=== PATIENT | female | born 1955 | race African-American/Black ===

== ENCOUNTER 2016-06-25 16:16 | Emergency (ER) | payer OTHER ==
[~2016-06-25] VITALS: Ht 162.6 cm; Wt 68.0 kg
[~2016-06-25 16:16] MED LIST: CARI250T7; HYDR-4067; NAP5EC
[2016-06-25] MEDS ORDERED: SODIUM CHLORIDE 0.9% 1,000 ML IV ONE (17:01)
[2016-06-25] MEDS ORDERED: FAMOTIDINE 20MG/2ML VIAL IV STA (17:01)
[2016-06-25] MEDS ORDERED: KETOROLAC 30MG/ML VIAL IV STA (17:01)
[2016-06-25] MEDS ORDERED: ONDANSETRON HCL 4MG/2ML VIAL IV STA ×2 (17:01→20:27)
[2016-06-25 17:48] LABS: ALBUMIN 4.5 g/dL (3.4-5.0); ANION GAP 16; CALCIUM 9.5 mg/dL (8.5-10.1); CARBON DIOXIDE 25 mEq/L (21-32); CHLORIDE 100 mEq/L (98-107); INDEX HEMOLYSI 2 (1-3); INDEX ICTERIC 1 (1-4); INDEX LIPEMIC 1 (1-3); LIPASE 113 IU/L (73-393); UREA NITROGEN BLOOD 8 mg/dL (7-21)
[2016-06-25 17:52] LABS: ALANINE AMINOTRANSFERASE 25 IU/L (13-61); eGFR > 60 mL/min (>60)
[2016-06-25] MEDS ORDERED: MORPHINE SULFATE 4 MG/ML CPJ (NOT FOR IM USE) IV ONE (18:30)
[2016-06-25 19:22] LABS: BASOPHILS % 0.2 % (0.0-2.0); HEMATOCRIT. 39.4 % (36.0-48.0); HEMOGLOBIN. 13.2 g/dL (12.0-16.0); LYMPHOCYTES % 8.3 % (20.0-50.0); MEAN CORPUSCULAR HEMOGLOBIN 30.8 pg (28.0-32.0); MEAN CORPUSCULAR HGB CONC 33.4 g/dL (31.0-37.0); MEAN CORPUSCULAR VOLUME 92.1 fL (81.0-99.0); MEAN PLATELET VOLUME 7.2 fl (7.4-10.4); MONOCYTES % 3.2 % (2.0-8.0); NEUTROPHILS % 88.3 % (40.0-76.0); PLATELET 356 x1000/uL (130-400); RED BLOOD CELL COUNT 4.27 mill/uL (4.2-5.4); RED CELL DISTRIBUTION WIDTH 12.6 % (11.6-14.6); WHITE BLOOD COUNT 10.5 x1000/uL (4.5-11.0)
[2016-06-25 20:05] LABS: CLARITY URINE CLEAR (CLEAR); COLOR URINE YELLOW (YELLOW); GLUCOSE URINE NEGATIVE (NEGATIVE); KETONES URINE TRACE (NEGATIVE); LEUKOCYTE ESTERASE URINE NEGATIVE (NEGATIVE); NITRITE URINE NEGATIVE (NEGATIVE); OCCULT BLOOD URINE NEGATIVE (NEGATIVE); PH URINE 8.5 (4.5-8.0); PROTEIN URINE TRACE (NEGATIVE); SPECIFIC GRAVITY URINE 1.015 (1.005-1.030); UROBILINOGEN URINE 0.2 E.U./dL (0.2-1.0)
[2016-06-25 20:26] LABS: *AMPHETAMINES SCREEN URINE NEGATIVE (NEGATIVE); *BARBITURATES SCREEN URINE NEGATIVE (NEGATIVE); *BENZODIAZEPINES SCREEN URINE PRESUMTIVE POSITIVE (NEGATIVE); *COCAINE SCREEN URINE NEGATIVE (NEGATIVE); CANNABINOID URINE SCREEN PRESUMTIVE POSITIVE (NEGATIVE); ECSTASY MDMA SCREEN URINE NEGATIVE (NEGATIVE); METHADONE URINE SCREEN NEGATIVE (NEGATIVE); OPIATES URINE SCREEN PRESUMTIVE POSITIVE (NEGATIVE); PHENCYCLIDINE URINE SCREEN NEGATIVE (NEGATIVE)
[2016-06-25] MEDS ORDERED: MORPHINE SULFATE 4 MG/ML CPJ (NOT FOR IM USE) IV STA (20:27)
[2016-06-25 20:28] LABS: BACTERIA URINE TRACE; RBC URINE NONE SEEN /hpf (0-2); SQUAMOUS EPITHELIAL CELL URINE RARE /lpf (RARE/1+); WBC URINE 0-2 /hpf (0-2)
[2016-06-25 23:02] VITALS: BP 140/81
[2016-06-25] MEDS ORDERED: MAGNESIUM/ALUMINUM HYDROXIDE/SIMETHICONE 30ML UDC PO STA (23:16)
[2016-06-25] MEDS ORDERED: VISCOUS LIDOCAINE 2% 15 ML UDC PO STA (23:16)
[2016-06-25] MEDS ORDERED: DICYCLOMINE 10 MG/5 ML ORAL SYR PO STA (23:16)
== END 2016-06-25 23:45 | disposition home or self-care (01) ==
LOC: ER 16:16
DX: R10.10 Upper abdominal pain, unspecified (principal); I10 Essential (primary) hypertension; Z79.899 Other long term (current) drug therapy
CPT/HCPCS: 36415; 74176; 80053; 80305; 81001; 83690; 85025; 96361; 96374; 96375; 96376; 99285; J1885; J2270; J2405; J3490; Z7610; J7030

== ENCOUNTER 2016-12-23 21:15 | Inpatient (IN) | payer OTHER ==
[~2016-12-23] VITALS: Ht 162.6 cm; Wt 68.0 kg
[2016-12-23 23:48] LABS: CLARITY URINE CLEAR (CLEAR); COLOR URINE DARK YELLOW (YELLOW); GLUCOSE URINE NEGATIVE (NEGATIVE); KETONES URINE 4+ (NEGATIVE); LEUKOCYTE ESTERASE URINE NEGATIVE (NEGATIVE); NITRITE URINE NEGATIVE (NEGATIVE); OCCULT BLOOD URINE 2+ (NEGATIVE); PH URINE 6.5 (4.5-8.0); PROTEIN URINE 4+ (NEGATIVE); SPECIFIC GRAVITY URINE 1.029 (1.005-1.030); UROBILINOGEN URINE 0.2 E.U./dL (0.2-1.0)
[2016-12-24 00:32] LABS: *AMPHETAMINES SCREEN URINE NEGATIVE (NEGATIVE); *BARBITURATES SCREEN URINE NEGATIVE (NEGATIVE); *BENZODIAZEPINES SCREEN URINE PRESUMTIVE POSITIVE (NEGATIVE); *COCAINE SCREEN URINE NEGATIVE (NEGATIVE); CANNABINOID URINE SCREEN PRESUMTIVE POSITIVE (NEGATIVE); METHADONE URINE SCREEN NEGATIVE (NEGATIVE); OPIATES URINE SCREEN PRESUMTIVE POSITIVE (NEGATIVE); PHENCYCLIDINE URINE SCREEN NEGATIVE (NEGATIVE)
[2016-12-24] MEDS ORDERED: ONDANSETRON HCL 4MG/2ML VIAL IV ONE (00:45)
[2016-12-24] MEDS ORDERED: MORPHINE SULFATE 4 MG/ML CPJ (NOT FOR IM USE) IV ONE ×2 (00:45→03:30)
[2016-12-24] MEDS ORDERED: SODIUM CHLORIDE 0.9% 500 ML IV ONE (00:45)
[2016-12-24 00:51] LABS: HEMATOCRIT. 41.8 % (36.0-48.0); HEMOGLOBIN. 14.5 g/dL (12.0-16.0); MEAN CORPUSCULAR HEMOGLOBIN 31.6 pg (28.0-32.0); MEAN CORPUSCULAR VOLUME 90.8 fL (81.0-99.0); MEAN PLATELET VOLUME 7.3 fl (7.4-10.4); PLATELET 377 x1000/uL (130-400); RED CELL DISTRIBUTION WIDTH 12.2 % (11.6-14.6)
[2016-12-24 00:57] LABS: CHLORIDE 91 mEq/L (98-107); PROTHROMBIN TIME 10.1 sec (9.4-11.6)
[2016-12-24 01:08] LABS: CARBON DIOXIDE 25 mEq/L (21-32)
[2016-12-24] MEDS ORDERED: HYDROCHLOROTHIAZIDE 25MG TABLET PO ONE (01:30)
[2016-12-24] MEDS: FAMOTIDINE 20MG/2ML VIAL IV SCH ×2 (01:40→09:00)
[2016-12-24] MEDS ORDERED: SODIUM CHLORIDE 0.9% 1,000 ML IV ONE (04:00)
[2016-12-24 04:05] LABS: PLATELET ESTIMATE NORMAL
[2016-12-24 08:20] VITALS: BP 135/72
[2016-12-24 09:00] VITALS: BP 135/72
[2016-12-24] MEDS ORDERED: ALPR1TAB2 PO (09:09)
[2016-12-24] MEDS ORDERED: DOCUSATE SODIUM 100MG CAPSULE PO PRN (09:45)
[2016-12-24] MEDS ORDERED: MAGNESIUM/ALUMINUM HYDROXIDE/SIMETHICONE 30ML UDC PO PRN (09:45)
[2016-12-24] MEDS ORDERED: CLONIDINE 0.1MG TABLET PO PRN (09:45)
[2016-12-24] MEDS ORDERED: ONDANSETRON HCL 4MG/2ML VIAL IV PRN (09:45)
[2016-12-24] MEDS: AMLODIPINE 10MG TABLET PO SCH (10:44)
[2016-12-24] MEDS: ASPIRIN 81MG EC TABLET PO SCH (10:44)
[2016-12-24] MEDS: SODIUM CHLORIDE 0.9% 1,000 ML IV SCH ×2 (11:02→21:56)
[2016-12-24] MEDS: LEVOFLOXACIN 500MG PREMIX 100 ML IV SCH (11:14)
[2016-12-24 12:00] VITALS: BP 123/61
[2016-12-24] MEDS: HYDROCODONE/ACETAMINOPHEN 5/325MG TABLET PO PRN ×2 (15:09→21:56)
[2016-12-24 16:00] VITALS: BP 107/62
[2016-12-24 20:25] VITALS: BP 119/52
[2016-12-25] VITALS: BP 119/58
[2016-12-25 04:00] VITALS: BP 124/59
[2016-12-25 08:00] VITALS: BP 117/57
[2016-12-25] MEDS: AMLODIPINE 10MG TABLET PO SCH (08:50)
[2016-12-25] MEDS: ASPIRIN 81MG EC TABLET PO SCH (08:50)
[2016-12-25 09:44] LABS: CARBON DIOXIDE 28 mEq/L (21-32); CHLORIDE 103 mEq/L (98-107)
[2016-12-25] MEDS: LEVOFLOXACIN 500MG PREMIX 100 ML IV SCH (11:46)
[2016-12-25 12:00] VITALS: BP 115/69
[2016-12-25] MEDS: SODIUM CHLORIDE 0.9% 1,000 ML IV SCH (12:03)
[2016-12-25 12:13] VITALS: BP 115/69
[2016-12-25 13:33] LABS: BASOPHILS % 0.4 % (0.0-2.0); EOSINOPHILS % 0.2 % (0.0-5.0); HEMATOCRIT. 36.9 % (36.0-48.0); HEMOGLOBIN. 12.7 g/dL (12.0-16.0); MEAN CORPUSCULAR VOLUME 93.2 fL (81.0-99.0); MEAN PLATELET VOLUME 7.4 fl (7.4-10.4); MONOCYTES % 9.6 % (2.0-8.0); NEUTROPHILS % 60.8 % (40.0-76.0); PLATELET 331 x1000/uL (130-400); RED BLOOD CELL COUNT 3.96 mill/uL (4.2-5.4); RED CELL DISTRIBUTION WIDTH 12.1 % (11.6-14.6)
== END 2016-12-25 12:45 | disposition home or self-care (01) | DRG 463 ==
LOC: ER 22:34 → 7WST 12-24 01:35 → EDBEDREQTM 12-24 01:47 → EDBEDREQ 12-24 01:47 → ENRESERV 12-24 07:03
PROVIDERS: ADMIT Hospitalist; ATTEND Hospitalist
DX: N12 Tubulo-interstitial nephritis, not specified as acute or chronic (principal); E87.1 Hypo-osmolality and hyponatremia; E87.8 Other disorders of electrolyte and fluid balance, not elsewhere classified; I10 Essential (primary) hypertension; I16.0 Hypertensive urgency; Z79.899 Other long term (current) drug therapy; Z98.891 History of uterine scar from previous surgery
CPT/HCPCS: 36415; 74176; 80053; 80305; 81001; 83036; 83690; 85025; 85610; 85651; 93005; 93970; 96361; 96374; 96375; 96376; 99285; C1893; J1956; J2270; J2405; J3490; J7030; J7040

== ENCOUNTER 2017-02-28 16:46 | Emergency (ER) | payer OTHER ==
[~2017-02-28] VITALS: Ht 165.1 cm; Wt 60.0 kg
[~2017-02-28 16:46] MED LIST changes: +ALPR1TAB2 PO
[2017-02-28 16:49] VITALS: BP 181/100
[2017-02-28] MEDS ORDERED: HYDR12.529 PO (16:51)
== END 2017-03-01 00:05 | disposition left against medical advice (07) ==
LOC: ER 17:13
DX: R11.2 Nausea with vomiting, unspecified (principal); Z53.21 Procedure and treatment not carried out due to patient leaving prior to being seen by health care provider

== ENCOUNTER 2018-06-09 15:46 | Inpatient (IN) | payer OTHER ==
[~2018-06-09] VITALS: Ht 162.6 cm; Wt 62.7 kg
[~2018-06-09 15:46] MED LIST changes: +HYDR12.529 PO
[2018-06-09] MEDS ORDERED: PIPERACILLIN/TAZ 3.375G PREMIX 50 ML IV ONE (16:30)
[2018-06-09] MEDS ORDERED: ONDANSETRON HCL 4MG/2ML INJ IV STA (16:30)
[2018-06-09] MEDS ORDERED: KETOROLAC 30MG/ML VIAL IV STA (16:30)
[2018-06-09] MEDS ORDERED: SODIUM CHLORIDE 0.9% 1000ML BAG (SEPSIS BOLUS) IV ONE (16:30)
[2018-06-09 17:07] LABS: BASOPHILS % 0.5 % (0.0-2.0); EOSINOPHILS % 0.1 % (0.0-5.0); HEMATOCRIT. 45.6 % (36.0-48.0); HEMOGLOBIN. 15.3 g/dL (12.0-16.0); MEAN CORPUSCULAR HEMOGLOBIN 32.1 pg (28.0-32.0); MEAN CORPUSCULAR VOLUME 95.6 fL (81.0-99.0); MEAN PLATELET VOLUME 7.2 fl (7.4-10.4); MONOCYTES % 5.6 % (2.0-8.0); NEUTROPHILS % 80.8 % (40.0-76.0); PLATELET 463 x1000/uL (130-400); RED BLOOD CELL COUNT 4.77 mill/uL (4.2-5.4); RED CELL DISTRIBUTION WIDTH 12.6 % (11.6-14.6)
[2018-06-09 17:11] LABS: CHLORIDE 99 mEq/L (98-107)
[2018-06-09 17:14] LABS: PROTHROMBIN TIME 9.6 sec (9.1-11.1)
[2018-06-09] MEDS ORDERED: METOCLOPRAMIDE HCL 10MG/2ML VIAL IV ONE (18:45)
[2018-06-09 19:02] LABS: CLARITY URINE CLEAR (CLEAR); COLOR URINE YELLOW (YELLOW); KETONES URINE 1+ (NEGATIVE); LEUKOCYTE ESTERASE URINE NEGATIVE (NEGATIVE); NITRITE URINE NEGATIVE (NEGATIVE); OCCULT BLOOD URINE NEGATIVE (NEGATIVE); PH URINE 8.5 (4.5-8.0); PROTEIN URINE 2+ (NEGATIVE); SPECIFIC GRAVITY URINE 1.016 (1.005-1.030); UROBILINOGEN URINE 0.2 E.U./dL (0.2-1.0)
[2018-06-09] MEDS ORDERED: MORPHINE SULFATE 4 MG/ML CPJ (NOT FOR IM USE) IV ONE (19:15)
[2018-06-09] MEDS ORDERED: DILTIAZEM HCL 125 MG in DEXT 5% WATER 100 ML IV ONE (20:15)
[2018-06-09] MEDS ORDERED: ASPIRIN 300MG SUPP PR ONE (20:15)
[2018-06-09] MEDS ORDERED: DILTIAZEM HCL 125 MG in DEXT 5% WATER 100 ML IV SCH (20:30)
[2018-06-09] MEDS ORDERED: HEPARIN 5000 UNITS/ML VIAL IV ONE (20:30)
[2018-06-09] MEDS ORDERED: SODIUM CHLORIDE 0.9% 1,000 ML IV ONE (20:30)
[2018-06-09] MEDS ORDERED: HEPARIN 25,000 UNITS PREMIX 500 ML IV ONE ×2 (20:30→23:45)
[2018-06-09] MEDS ORDERED: DIPHENHYDRAMINE 50MG/ML VIAL IV PRN (22:00)
[2018-06-09] MEDS ORDERED: CLONIDINE 0.1MG TABLET PO PRN (22:00)
[2018-06-09] MEDS: METRONIDAZOLE 500 MG PREMIX 100 ML IV SCH (22:00)
[2018-06-09] MEDS ORDERED: IPRATROPIUM/ALBUTEROL 0.5-3(2.5)MG/3ML NEB INH PRN (22:00)
[2018-06-09] MEDS ORDERED: ACETAMINOPHEN 650MG SUPP PR PRN (22:00)
[2018-06-09] MEDS ORDERED: MAGNESIUM/ALUMINUM HYDROXIDE/SIMETHICONE 30ML UDC PO PRN (22:00)
[2018-06-09] MEDS ORDERED: ACETAMINOPHEN 650MG/20.3ML UDC GT PRN (22:00)
[2018-06-09] MEDS ORDERED: ENOXAPARIN 40MG/0.4ML SYR SUBCUT SCH (22:00)
[2018-06-09] MEDS ORDERED: HYDROCODONE/ACETAMINOPHEN 5/325MG TABLET PO PRN (22:00)
[2018-06-09] MEDS ORDERED: ACETAMINOPHEN 325MG TABLET PO PRN (22:00)
[2018-06-09] MEDS ORDERED: NA PHOS,M-B/NA PHOS,DI-BA ENEMA 118ML PR PRN (22:00)
[2018-06-09] MEDS ORDERED: LEVOFLOXACIN 500MG PREMIX 100 ML IV NR (23:45)
[2018-06-09] MEDS ORDERED: METRONIDAZOLE 500 MG PREMIX 100 ML IV NR (23:45)
[2018-06-10] MEDS ORDERED: HYDRALAZINE 20MG/ML VIAL IV PRN
[2018-06-10] MEDS ORDERED: NITROGLYCERIN 0.2MG/HR PATCH TOP NR (00:45)
[2018-06-10] MEDS: HYDROCODONE/ACETAMINOPHEN 10/325MG TABLET PO PRN ×3 (01:20→17:42)
[2018-06-10] MEDS ORDERED: HEPARIN 25,000 UNITS PREMIX 500 ML IV NR (03:15)
[2018-06-10] MEDS ORDERED: AMLODIPINE 10MG TABLET PO NR (05:15)
[2018-06-10] MEDS: SODIUM CHLORIDE 0.9% INJ 3ML FLUSH IVF SCH ×4 (06:00→21:14)
[2018-06-10] MEDS: METRONIDAZOLE 500 MG PREMIX 100 ML IV SCH ×2 (06:00→21:04)
[2018-06-10] MEDS: ONDANSETRON HCL 4MG/2ML INJ IV PRN (06:21)
[2018-06-10 06:38] LABS: BASOPHILS % 0.5 % (0.0-2.0); HEMATOCRIT. 42.1 % (36.0-48.0); HEMOGLOBIN. 14.4 g/dL (12.0-16.0); LYMPHOCYTES % 15.3 % (20.0-50.0); MEAN CORPUSCULAR VOLUME 93.5 fL (81.0-99.0); MEAN PLATELET VOLUME 7.1 fl (7.4-10.4); MONOCYTES % 13.7 % (2.0-8.0); NEUTROPHILS % 70.5 % (40.0-76.0); PLATELET 467 x1000/uL (130-400)
[2018-06-10 06:42] LABS: CHLORIDE 99 mEq/L (98-107)
[2018-06-10 06:55] LABS: LDL CHOLESTEROL 89 mg/dL (5-100)
[2018-06-10 06:56] LABS: CREATINE KINASE 356 IU/L (26-192)
[2018-06-10 06:57] LABS: HDL CHOLESTEROL 78 mg/dL (40-59)
[2018-06-10] MEDS ORDERED: METRONIDAZOLE 500 MG PREMIX 100 ML IV SCH ×2 (08:30→14:15)
[2018-06-10] MEDS: ASPIRIN 81MG TABLET PO SCH (09:00)
[2018-06-10] MEDS ORDERED: AMLODIPINE 5MG TABLET PO SCH (09:00)
[2018-06-10] MEDS: SODIUM CHLORIDE 0.45% 1,000 ML IV SCH ×5 (10:32→22:53)
[2018-06-10] MEDS ORDERED: ONDANSETRON HCL 4MG/2ML INJ IV ONE (11:00)
[2018-06-10] MEDS: METOCLOPRAMIDE HCL 10MG/2ML VIAL IV SCH ×3 (12:55→23:46)
[2018-06-10 14:00] VITALS: BP 130/79
[2018-06-10] MEDS ORDERED: LEVOFLOXACIN 500MG PREMIX 100 ML IV SCH (14:15)
[2018-06-10 14:24] LABS: PARTIAL THROMBOPLASTIN TIME 26.3 sec (23.4-31.0); PROTHROMBIN TIME 10.1 sec (9.1-11.1)
[2018-06-10 16:00] VITALS: BP 130/63
[2018-06-10 18:00] VITALS: BP 142/83
[2018-06-10] MEDS ORDERED: POTASSIUM CHLORIDE 20MEQ TABLET SR PO SCH (19:15)
[2018-06-10 20:00] VITALS: BP 122/62
[2018-06-10] MEDS ORDERED: VANCOMYCIN 1 G PREMIX 200 ML IV SCH (21:00)
[2018-06-10 22:00] VITALS: BP 118/69
[2018-06-11] VITALS (10 sets, daily range): BP systolic 99–128; BP diastolic 48–77
[2018-06-11 01:49] LABS: *AMPHETAMINES SCREEN URINE NEGATIVE (NEGATIVE); *BARBITURATES SCREEN URINE NEGATIVE (NEGATIVE); *BENZODIAZEPINES SCREEN URINE NEGATIVE (NEGATIVE); *COCAINE SCREEN URINE NEGATIVE (NEGATIVE); METHADONE URINE SCREEN NEGATIVE (NEGATIVE); OPIATES URINE SCREEN PRESUMTIVE POSITIVE (NEGATIVE)
[2018-06-11 01:51] LABS: CANNABINOID URINE SCREEN PRESUMTIVE POSITIVE (NEGATIVE); PHENCYCLIDINE URINE SCREEN NEGATIVE (NEGATIVE)
[2018-06-11] MEDS: METRONIDAZOLE 500 MG PREMIX 100 ML IV SCH ×3 (03:42→21:06)
[2018-06-11] MEDS: SODIUM CHLORIDE 0.45% 1,000 ML IV SCH ×2 (03:43→23:50)
[2018-06-11] MEDS: ONDANSETRON HCL 4MG/2ML INJ IV PRN (04:30)
[2018-06-11] MEDS: HYDROCODONE/ACETAMINOPHEN 10/325MG TABLET PO PRN ×2 (04:37→21:05)
[2018-06-11] MEDS ORDERED: LEVOFLOXACIN 500MG PREMIX 100 ML IV SCH (05:00)
[2018-06-11] MEDS: METOCLOPRAMIDE HCL 10MG/2ML VIAL IV SCH ×4 (05:50→23:50)
[2018-06-11] MEDS: SODIUM CHLORIDE 0.9% INJ 3ML FLUSH IVF SCH ×3 (05:51→21:06)
[2018-06-11] MEDS ORDERED: NITROGLYCERIN 0.2MG/HR PATCH TOP SCH (06:00)
[2018-06-11 07:39] LABS: HEMATOCRIT. 37.1 % (36.0-48.0); HEMOGLOBIN. 12.8 g/dL (12.0-16.0); MEAN CORPUSCULAR HEMOGLOBIN 32.6 pg (28.0-32.0); MEAN CORPUSCULAR VOLUME 94.9 fL (81.0-99.0); MEAN PLATELET VOLUME 6.7 fl (7.4-10.4); PLATELET 410 x1000/uL (130-400); RED BLOOD CELL COUNT 3.91 mill/uL (4.2-5.4); RED CELL DISTRIBUTION WIDTH 12.4 % (11.6-14.6)
[2018-06-11 07:51] LABS: CHLORIDE 102 mEq/L (98-107)
[2018-06-11] MEDS ORDERED: ENOXAPARIN 40MG/0.4ML SYR SUBCUT SCH (09:00)
[2018-06-11] MEDS: AMLODIPINE 10MG TABLET PO SCH (09:20)
[2018-06-11] MEDS: ASPIRIN 81MG TABLET PO SCH (09:20)
[2018-06-11] MEDS: VANCOMYCIN 750 MG PREMIX 150 ML IV SCH ×2 (12:49→23:51)
[2018-06-11 14:15] LABS: PLATELET ESTIMATE SLIGHTLY INCREASED
[2018-06-12] VITALS (8 sets, daily range): BP systolic 99–140; BP diastolic 48–80
[2018-06-12] MEDS: METRONIDAZOLE 500 MG PREMIX 100 ML IV SCH ×3 (03:42→19:38)
[2018-06-12] MEDS ORDERED: LEVOFLOXACIN 500MG PREMIX 100 ML IV SCH (05:00)
[2018-06-12] MEDS: NITROGLYCERIN 0.2MG/HR PATCH TOP SCH (05:40)
[2018-06-12] MEDS: LEVOFLOXACIN 500MG PREMIX 100 ML IV SCH (05:41)
[2018-06-12] MEDS: SODIUM CHLORIDE 0.9% INJ 3ML FLUSH IVF SCH ×2 (05:41→22:00)
[2018-06-12] MEDS: METOCLOPRAMIDE HCL 10MG/2ML VIAL IV SCH ×4 (05:41→23:43)
[2018-06-12 06:30] LABS: BASOPHILS % 0.5 % (0.0-2.0); EOSINOPHILS % 1.1 % (0.0-5.0); HEMATOCRIT. 33.7 % (36.0-48.0); HEMOGLOBIN. 11.7 g/dL (12.0-16.0); LYMPHOCYTES % 34.9 % (20.0-50.0); MEAN CORPUSCULAR HEMOGLOBIN 32.7 pg (28.0-32.0); MEAN CORPUSCULAR VOLUME 94.5 fL (81.0-99.0); MEAN PLATELET VOLUME 6.6 fl (7.4-10.4); MONOCYTES % 14.1 % (2.0-8.0); NEUTROPHILS % 49.4 % (40.0-76.0); PLATELET 379 x1000/uL (130-400); RED BLOOD CELL COUNT 3.56 mill/uL (4.2-5.4)
[2018-06-12] MEDS: HYDROCODONE/ACETAMINOPHEN 10/325MG TABLET PO PRN ×2 (06:34→12:51)
[2018-06-12] MEDS: ONDANSETRON HCL 4MG/2ML INJ IV PRN ×2 (06:34→23:48)
[2018-06-12 07:45] LABS: CHLORIDE 104 mEq/L (98-107)
[2018-06-12] MEDS ORDERED: IOHEXOL-300 100 ML BOTTLE ONE (08:26)
[2018-06-12] MEDS ORDERED: FENTANYL CITRATE/PF 50MCG/ML 2ML VIAL ONE (08:45)
[2018-06-12] MEDS ORDERED: MIDAZOLAM HCL 2 MG/2 ML VIAL ONE (08:45)
[2018-06-12] MEDS: AMLODIPINE 10MG TABLET PO SCH (09:00)
[2018-06-12] MEDS: ASPIRIN 81MG TABLET PO SCH (09:00)
[2018-06-12] MEDS ORDERED: ATROPINE SULFATE 1MG/10ML SYR IV PRN (09:15)
[2018-06-12] MEDS ORDERED: ACETAMINOPHEN 325MG TABLET PO PRN (09:15)
[2018-06-12] MEDS: VANCOMYCIN 750 MG PREMIX 150 ML IV SCH ×2 (11:00→17:12)
[2018-06-12] MEDS ORDERED: MAGNESIUM 2 G PREMIX 50 ML IV NR (11:30)
[2018-06-12] MEDS ORDERED: MAGNESIUM 1 G PREMIX 100 ML IV NR (23:30)
[2018-06-12] MEDS: SODIUM CHLORIDE 0.45% 1,000 ML IV SCH (23:50)
[2018-06-13] VITALS: BP 118/77
[2018-06-13 02:00] VITALS: BP 144/71
[2018-06-13] MEDS: METRONIDAZOLE 500 MG PREMIX 100 ML IV SCH ×2 (03:52→11:32)
[2018-06-13 04:00] VITALS: BP 105/63
[2018-06-13] MEDS: VANCOMYCIN 750 MG PREMIX 150 ML IV SCH (04:24)
[2018-06-13] MEDS: METOCLOPRAMIDE HCL 10MG/2ML VIAL IV SCH ×2 (05:47→11:32)
[2018-06-13] MEDS: LEVOFLOXACIN 500MG PREMIX 100 ML IV SCH (05:47)
[2018-06-13] MEDS: NITROGLYCERIN 0.2MG/HR PATCH TOP SCH (05:48)
[2018-06-13] MEDS: SODIUM CHLORIDE 0.9% INJ 3ML FLUSH IVF SCH (05:48)
[2018-06-13 07:04] LABS: BASOPHILS % 0.7 % (0.0-2.0); EOSINOPHILS % 1.3 % (0.0-5.0); HEMOGLOBIN. 10.6 g/dL (12.0-16.0); LYMPHOCYTES % 36.5 % (20.0-50.0); MEAN CORPUSCULAR HEMOGLOBIN 31.9 pg (28.0-32.0); MEAN CORPUSCULAR VOLUME 96.1 fL (81.0-99.0); MEAN PLATELET VOLUME 6.6 fl (7.4-10.4); MONOCYTES % 12.9 % (2.0-8.0); NEUTROPHILS % 48.6 % (40.0-76.0); PLATELET 336 x1000/uL (130-400); RED BLOOD CELL COUNT 3.33 mill/uL (4.2-5.4); RED CELL DISTRIBUTION WIDTH 12.4 % (11.6-14.6)
[2018-06-13 07:39] LABS: CHLORIDE 106 mEq/L (98-107)
[2018-06-13 08:13] VITALS: BP 136/89
[2018-06-13] MEDS: ASPIRIN 81MG TABLET PO SCH (08:13)
[2018-06-13] MEDS: AMLODIPINE 10MG TABLET PO SCH (08:13)
[2018-06-13] MEDS: HYDROCODONE/ACETAMINOPHEN 10/325MG TABLET PO PRN (08:19)
[2018-06-13 11:57] VITALS: BP 129/77
[2018-06-13] MEDS ORDERED: ASPI-1160 PO (12:27)
[2018-06-13] MEDS ORDERED: AMLO10TA80 PO (12:27)
[2018-06-13] MEDS ORDERED: ATOR10TA MT (12:30)
[2018-06-13] MEDS ORDERED: LEVO500T2 MT (12:32)
[2018-06-13 12:40] VITALS: BP 129/77
[2018-06-13] MEDS ORDERED: METRONIDAZOLE 500MG TABLET PO SCH (20:00)
[2018-06-13] MEDS ORDERED: ATORVASTATIN CALCIUM 10MG TABLET PO SCH (21:00)
[2018-06-14] MEDS ORDERED: LEVOFLOXACIN 250MG TABLET PO SCH (09:00)
== END 2018-06-13 14:32 | disposition home or self-care (01) | DRG 720 ==
LOC: ER 17:11 → EDBEDREQTM 19:03 → EDBEDREQ 19:03 → EDBEDREQSVC 19:03 → 5EST 20:27 → EDBEDREQ 20:29 → EDBEDREQSVC 20:29 → EDBEDREQTM 20:29 → ENRESERV 06-10 14:41 → 5EST 06-11 11:30
PROVIDERS: ADMIT Family Medicine; ATTEND Family Medicine
PROC: 4A023N7 Measurement of Cardiac Sampling and Pressure, Left Heart, Percutaneous Approach (ICD-10-PCS; principal; 2018-06-12)
PROC: B2111ZZ Fluoroscopy of Multiple Coronary Arteries using Low Osmolar Contrast (ICD-10-PCS; 2018-06-12)
PROC: B2151ZZ Fluoroscopy of Left Heart using Low Osmolar Contrast (ICD-10-PCS; 2018-06-12)
PROC: B41F1ZZ Fluoroscopy of Right Lower Extremity Arteries using Low Osmolar Contrast (ICD-10-PCS; 2018-06-12)
DX: A41.9 Sepsis, unspecified organism (principal); I21.4 Non-ST elevation (NSTEMI) myocardial infarction; E87.2 Acidosis; E87.1 Hypo-osmolality and hyponatremia; E87.6 Hypokalemia; I10 Essential (primary) hypertension; F12.90 Cannabis use, unspecified, uncomplicated; J44.9 Chronic obstructive pulmonary disease, unspecified; K04.7 Periapical abscess without sinus; M26.622 Arthralgia of left temporomandibular joint; D25.9 Leiomyoma of uterus, unspecified; K05.6 Periodontal disease, unspecified; E78.5 Hyperlipidemia, unspecified; L03.211 Cellulitis of face; K52.9 Noninfective gastroenteritis and colitis, unspecified; Z79.899 Other long term (current) drug therapy
CPT/HCPCS: 36415; 70486; 71045; 74176; 80048; 80061; 80202; 80305; 82550; 82553; 83036; 83605; 83735; 84145; 84484; 87804; 93005; 93306; 93458; 96374; 99291; C1760; C1769; C1887; C1893; J1644; J1650; J1885; J1956; J2250; J2270; J2405; J2543; J2765; J3010; J3370; J3475; J3490; J7030; J7060; Q9967

== ENCOUNTER 2018-10-02 15:43 | Emergency (ER) | payer OTHER ==
[~2018-10-02] VITALS: Ht 162.6 cm; Wt 65.0 kg
[~2018-10-02 15:43] MED LIST changes: -ALPR1TAB2 PO; +AMLO10TA80 PO; +ASPI-1160 PO; +ATOR10TA MT; -CARI250T7; -HYDR-4067; -HYDR12.529 PO; +LEVO500T2 MT; -NAP5EC
[2018-10-02 16:33] VITALS: BP 145/85
[2018-10-02] MEDS ORDERED: ACETAMINOPHEN 500MG TABLET PO ONE (19:00)
== END 2018-10-02 19:09 | disposition home or self-care (01) ==
LOC: ER 17:49
DX: L03.211 Cellulitis of face (principal); I10 Essential (primary) hypertension
CPT/HCPCS: 99283

== ENCOUNTER 2019-03-01 15:43 | Emergency (ER) | payer OTHER ==
[~2019-03-01] VITALS: Ht 162.6 cm; Wt 68.0 kg
[2019-03-01 17:23] LABS: BASOPHILS % 0.5 % (0.0-2.0); EOSINOPHILS % 0.9 % (0.0-5.0); HEMATOCRIT. 41.7 % (36.0-48.0); HEMOGLOBIN. 13.9 g/dL (12.0-16.0); LYMPHOCYTES % 24.7 % (20.0-50.0); MEAN CORPUSCULAR HEMOGLOBIN 31.8 pg (28.0-32.0); MEAN PLATELET VOLUME 7.4 fl (7.4-10.4); MONOCYTES % 11.7 % (2.0-8.0); NEUTROPHILS % 62.2 % (40.0-76.0); PLATELET 327 x1000/uL (130-400); RED BLOOD CELL COUNT 4.35 mill/uL (4.2-5.4); RED CELL DISTRIBUTION WIDTH 12.2 % (11.6-14.6)
[2019-03-01 17:26] LABS: CHLORIDE 99 mEq/L (98-107)
[2019-03-01] MEDS ORDERED: ALPRAZOLAM 0.25 MG TABLET PO ONE (21:00)
[2019-03-01] MEDS ORDERED: ONDANSETRON 4MG ODT PO ONE (21:00)
[2019-03-01 21:23] VITALS: BP 148/79
== END 2019-03-01 21:28 | disposition home or self-care (01) ==
LOC: ER 15:43
DX: F41.0 Panic disorder [episodic paroxysmal anxiety] (principal); M47.894 Other spondylosis, thoracic region; R42 Dizziness and giddiness; I10 Essential (primary) hypertension
CPT/HCPCS: 36415; 71046; 80053; 83880; 84484; 85025; 93005; 99284; Q0162

== ENCOUNTER 2019-12-13 12:50 | Inpatient (IN) | payer MEDICAID, OTHER ==
[~2019-12-13] VITALS: Ht 162.6 cm; Wt 67.1 kg
[2019-12-13 14:25] LABS: BASOPHILS % 1.8 % (0.0-2.0); EOSINOPHILS % 0.8 % (0.0-5.0); HEMATOCRIT. 44.6 % (36.0-48.0); HEMOGLOBIN. 14.7 g/dL (12.0-16.0); LYMPHOCYTES % 24.7 % (20.0-50.0); MEAN CORPUSCULAR HEMOGLOBIN 29.6 pg (28.0-32.0); MEAN CORPUSCULAR VOLUME 89.5 fL (81.0-99.0); MEAN PLATELET VOLUME 7.6 fl (7.4-10.4); MONOCYTES % 7.6 % (2.0-8.0); NEUTROPHILS % 65.1 % (40.0-76.0); PLATELET 296 x1000/uL (130-400); RED BLOOD CELL COUNT 4.98 mill/uL (4.2-5.4); RED CELL DISTRIBUTION WIDTH 13.7 % (11.6-14.6)
[2019-12-13 14:32] LABS: CHLORIDE 103 mEq/L (98-107)
[2019-12-13 17:23] LABS: CLARITY URINE CLEAR (CLEAR); COLOR URINE YELLOW (YELLOW); KETONES URINE NEGATIVE (NEGATIVE); LEUKOCYTE ESTERASE URINE TRACE (NEGATIVE); NITRITE URINE NEGATIVE (NEGATIVE); OCCULT BLOOD URINE NEGATIVE (NEGATIVE); PH URINE >=9.0 (4.5-8.0); PROTEIN URINE NEGATIVE (NEGATIVE); SPECIFIC GRAVITY URINE 1.012 (1.005-1.030)
[2019-12-13 17:44] LABS: *AMPHETAMINES SCREEN URINE NEGATIVE (NEGATIVE); *BARBITURATES SCREEN URINE NEGATIVE (NEGATIVE); *BENZODIAZEPINES SCREEN URINE NEGATIVE (NEGATIVE); *COCAINE SCREEN URINE NEGATIVE (NEGATIVE)
[2019-12-13 17:45] LABS: CANNABINOID URINE SCREEN PRESUMTIVE POSITIVE (NEGATIVE); OPIATES URINE SCREEN NEGATIVE (NEGATIVE); PHENCYCLIDINE URINE SCREEN NEGATIVE (NEGATIVE)
[2019-12-13 17:49] LABS: METHADONE URINE SCREEN PRESUMTIVE POSITIVE (NEGATIVE)
[2019-12-13] MEDS ORDERED: DOCUSATE SODIUM 100MG CAPSULE PO PRN (22:00)
[2019-12-13] MEDS ORDERED: CLONIDINE 0.1MG TABLET PO PRN (22:00)
[2019-12-13] MEDS ORDERED: MORPHINE SULFATE 2 MG/ML CPJ (NOT FOR IM USE) IV PRN (22:00)
[2019-12-13] MEDS ORDERED: LORAZEPAM 2MG/ML CPJ IV PRN (22:00)
[2019-12-13] MEDS ORDERED: MAGNESIUM/ALUMINUM HYDROXIDE/SIMETHICONE 30ML UDC PO PRN (22:00)
[2019-12-13] MEDS ORDERED: ACETAMINOPHEN 325MG TABLET PO PRN (22:00)
[2019-12-14] VITALS: BP 145/92
[2019-12-14] MEDS: SODIUM CHLORIDE 0.9% 1,000 ML IV SCH ×2 (00:20→17:50)
[2019-12-14] MEDS: ONDANSETRON HCL 4MG/2ML INJ IV PRN ×3 (00:20→23:26)
[2019-12-14] MEDS: ENOXAPARIN 40MG/0.4ML SYR SUBCUT SCH ×2 (00:22→21:12)
[2019-12-14] MEDS ORDERED: OMEP20CA14 PO (01:59)
[2019-12-14] MEDS ORDERED: MULT-1116 PO (01:59)
[2019-12-14 04:00] VITALS: BP 129/88
[2019-12-14 07:03] LABS: BASOPHILS % 0.8 % (0.0-2.0); EOSINOPHILS % 1.8 % (0.0-5.0); HEMATOCRIT. 40.8 % (36.0-48.0); HEMOGLOBIN. 13.5 g/dL (12.0-16.0); LYMPHOCYTES % 42.2 % (20.0-50.0); MEAN CORPUSCULAR HEMOGLOBIN 29.9 pg (28.0-32.0); MEAN CORPUSCULAR VOLUME 89.9 fL (81.0-99.0); MEAN PLATELET VOLUME 7.9 fl (7.4-10.4); MONOCYTES % 9.2 % (2.0-8.0); PLATELET 278 x1000/uL (130-400); RED BLOOD CELL COUNT 4.53 mill/uL (4.2-5.4); RED CELL DISTRIBUTION WIDTH 13.3 % (11.6-14.6)
[2019-12-14 07:12] LABS: CHLORIDE 104 mEq/L (98-107)
[2019-12-14 08:00] VITALS: BP 155/90
[2019-12-14] MEDS: FOLIC ACID 1MG TABLET PO SCH (08:22)
[2019-12-14] MEDS: ASPIRIN 81MG EC TABLET PO SCH (08:22)
[2019-12-14] MEDS: THIAMINE HCL 100MG TABLET PO SCH (08:33)
[2019-12-14] MEDS: HYDROCODONE/ACETAMINOPHEN 5/325MG TABLET PO PRN (14:51)
[2019-12-14 16:00] VITALS: BP 150/80
[2019-12-14 20:00] VITALS: BP 136/88
[2019-12-14 23:27] VITALS: BP 122/77
[2019-12-15] VITALS (7 sets, daily range): BP systolic 128–156; BP diastolic 76–118
[2019-12-15] MEDS: ONDANSETRON HCL 4MG/2ML INJ IV PRN ×2 (08:37→20:59)
[2019-12-15] MEDS: ASPIRIN 81MG EC TABLET PO SCH (08:40)
[2019-12-15] MEDS: FOLIC ACID 1MG TABLET PO SCH (08:40)
[2019-12-15] MEDS: THIAMINE HCL 100MG TABLET PO SCH (08:40)
[2019-12-15] MEDS: METHADONE HCL 10MG TABLET PO SCH (14:46)
[2019-12-15] MEDS: ENOXAPARIN 40MG/0.4ML SYR SUBCUT SCH (21:02)
[2019-12-16] VITALS: BP 141/89
[2019-12-16] MEDS: SODIUM CHLORIDE 0.9% 1,000 ML IV SCH (00:26)
[2019-12-16] MEDS: HYDROCODONE/ACETAMINOPHEN 5/325MG TABLET PO PRN ×2 (00:41→12:25)
[2019-12-16 04:00] VITALS: BP 130/82
[2019-12-16 08:08] VITALS: BP 140/80
[2019-12-16 08:31] VITALS: BP 140/81
[2019-12-16] MEDS: FOLIC ACID 1MG TABLET PO SCH (08:31)
[2019-12-16] MEDS: METHADONE HCL 10MG TABLET PO SCH (08:31)
[2019-12-16] MEDS: THIAMINE HCL 100MG TABLET PO SCH (08:31)
[2019-12-16] MEDS: ASPIRIN 81MG EC TABLET PO SCH (08:31)
[2019-12-16 12:10] VITALS: BP 150/94
[2019-12-16 13:04] VITALS: BP 150/94
== END 2019-12-16 14:08 | disposition home or self-care (01) | DRG 347 ==
LOC: ER 13:09 → 6WST 17:52 → ENRESERV 22:13 → 6WST 23:57
PROVIDERS: ADMIT Internal Medicine Nephrology; ATTEND Internal Medicine Nephrology
DX: M48.02 Spinal stenosis, cervical region (principal); G90.8 Other disorders of autonomic nervous system; M16.11 Unilateral primary osteoarthritis, right hip; M48.061 Spinal stenosis, lumbar region without neurogenic claudication; E87.1 Hypo-osmolality and hyponatremia; J44.9 Chronic obstructive pulmonary disease, unspecified; G89.4 Chronic pain syndrome; F12.10 Cannabis abuse, uncomplicated; F11.20 Opioid dependence, uncomplicated; I50.9 Heart failure, unspecified; I11.0 Hypertensive heart disease with heart failure; Z87.891 Personal history of nicotine dependence; Z79.2 Long term (current) use of antibiotics; F19.10 Other psychoactive substance abuse, uncomplicated; R20.2 Paresthesia of skin; R26.89 Other abnormalities of gait and mobility
CPT/HCPCS: 36415; 70551; 71045; 72040; 72100; 72141; 72146; 72148; 73521; 80048; 80053; 80305; 81003; 83880; 84484; 85025; 93005; 97162; 97166; 99285; J1650; J2270; J2405

== ENCOUNTER 2021-07-23 13:31 | Emergency (ER) | payer MEDICARE, MEDICAID ==
[~2021-07-23] VITALS: Ht 162.6 cm; Wt 75.0 kg
[~2021-07-23 13:31] MED LIST changes: -LEVO500T2 MT; +MULT-1116 PO; +OMEP20CA14 PO
[2021-07-23] MEDS ORDERED: SODIUM CHLORIDE 0.9% 500 ML IV ONE (14:15)
[2021-07-23] MEDS ORDERED: MECLIZINE 25MG TABLET PO ONE (14:15)
[2021-07-23 14:37] LABS: BASOPHILS % 0.4 % (0.0-2.0); EOSINOPHILS % 0.2 % (0.0-5.0); HEMATOCRIT. 38.8 % (36.0-48.0); LYMPHOCYTES % 27.6 % (20.0-50.0); MEAN CORPUSCULAR VOLUME 92.1 fL (81.0-99.0); MEAN PLATELET VOLUME 7.5 fl (7.4-10.4); MONOCYTES % 8.1 % (2.0-8.0); NEUTROPHILS % 63.7 % (40.0-76.0); PLATELET 297 x1000/uL (130-400); RED BLOOD CELL COUNT 4.21 mill/uL (4.2-5.4); RED CELL DISTRIBUTION WIDTH 12.4 % (11.6-14.6)
[2021-07-23 14:47] LABS: CHLORIDE 101 mEq/L (98-107)
[2021-07-23] MEDS ORDERED: MECL-159 MT (17:10)
[2021-07-23] MEDS ORDERED: ONDA4TAB5 MT (17:11)
[2021-07-23 17:56] VITALS: BP 135/62
== END 2021-07-23 17:57 | disposition home or self-care (01) ==
LOC: ER 13:31
DX: R42 Dizziness and giddiness (principal)
CPT/HCPCS: 36415; 70450; 71045; 80053; 83605; 83880; 84443; 84484; 85025; 93005; 96360; 96361; 99285; J7040; J8597